=== PATIENT | male | born 1970 | race Caucasian/White ===

== ENCOUNTER 2017-04-26 20:25 | Emergency (ER) | payer OTHER ==
[2017-04-26 20:51] VITALS: BP 133/89
[2017-04-26] MEDS ORDERED: methylPREDNISolone Sodium Succinate 125 MG/2 ML SDV IM ONE (21:06)
--- NOTE | 2017-04-26 21:10 | EDM.PDOC ---
[id number]: RASH STARTED YESTERDAY AND IS GETTING WORSE Time Seen by Provider: 04/26/17 20:45 Source of Information: Reports: Patient History Limitations: Reports: No Limitations - History of Present Illness INITIAL COMMENTS - FREE TEXT/NARRATIVE: 46-year-old male who has had poison iraj on his right leg for the past several days has now developed recurring diffuse hives on his neck, extremities, and some on his abdomen over the past 24 hours. He has taken several doses of Benadryl without improvement. He has no mucosal swelling, tongue swelling, shortness of breath or wheezing. He is unsure what is causing the hives, no new medications. Onset: Gradual (Over the past several days) Severity: Mild Associated Symptoms: Reports: No Other Symptoms - Related Data Allergies Allergy/AdvReac Type Severity Reaction Status Date / Time No Known Allergies Allergy Verified 04/26/17 20:50 Home Meds: Home Meds Chlorthalidone 04/26/17 [History] Insulin Glargine,Hum.Rec.Anlog [Lantus Solostar] 04/26/17 [History] Insulin Lispro [HumaLOG] 04/26/17 [History] Past Medical History Endocrine/Metabolic History: Reports: Diabetes, Type I Social & Family History - Tobacco Use Smoking Status *Q: Current Every Day Smoker Years of Tobacco use: 20 Packs/Tins Daily: 0.2 ED ROS GENERAL - Review of Systems Review Of Systems: See Below Constitutional: Denies: Fever, Chills Respiratory: Denies: Shortness of Breath Cardiovascular: Denies: Chest Pain GI/Abdominal: Denies: Abdominal Pain Neurological: Denies: Headache Psychiatric: Reports: No Symptoms ED EXAM, SKIN/RASH Exam: See Below Exam Limited By: No Limitations General Appearance: Alert, No Apparent Distress Throat/Mouth: No Airway Compromise Head: Atraumatic Neck: Other (Patient has a large area of wheal formation, hives along the left neck) Respiratory/Chest: No Respiratory Distress, Lungs Clear Extremities: Other (Patient has some nonblanching linear eruptions on the right leg, and scattered blanching hives on both legs) Psychiatric: Normal Affect, Normal Mood Course - Vital Signs Last Recorded V/S: Last Vital Signs Temp 97.7 F 04/26/17 20:54 Pulse 81 04/26/17 20:54 Resp 16 04/26/17 20:54 BP 133/89 04/26/17 20:54 Pulse Ox 96 04/26/17 20:54 - Orders/Labs/Meds Meds: Medications Discontinued Medications Generic Name Dose Route Start Last Admin Trade Name Jon PRN Reason Stop Dose Admin Methylprednisolone Sodium Succinate 125 mg 04/26/17 21:06 04/26/17 21:12 Solu-Medrol IM 04/26/17 21:07 125 mg ONETIME ONE Administration - Re-Assessments/Exams Free Text/Narrative Re-Assessment/Exam: 04/26/17 21:09 Patient was given 125 mg of Solu-Medrol IM, encouraged to continue with Benadryl and will take 60 mg of prednisone daily with his first meal for the next 2-5 days. He can return if worsening or concerns. Departure - Departure Time of Disposition: 21:16 Disposition: Home, Self-Care 01 Condition: Good Clinical Impression: Urticaria Contact dermatitis Qualifiers: Contact dermatitis type: allergic Contact dermatitis trigger: non-food plants Qualified Code(s): L23.7 - Allergic contact dermatitis due to plants, except food - Discharge Information Instructions: Contact Dermatitis, [id number], Hives, [id number] Referrals: Isra Brown MD [Primary Care Provider] - Forms: ED Department Discharge Care Plan Goals: Continue with Benadryl and take 6 pills of prednisone with her first meal of the day for the next 2-5 days until rash is gone. Recheck in 3-4 days if not improving significantly or return sooner if worsening.
== END 2017-04-26 21:16 | disposition home or self-care (01) ==
LOC: JP.ED 20:25
DX: L23.7 Allergic contact dermatitis due to plants, except food (principal); E10.9 Type 1 diabetes mellitus without complications; F17.210 Nicotine dependence, cigarettes, uncomplicated
CPT/HCPCS: 96372; 99283; J2930